=== PATIENT | female | born 1965 | race Caucasian/White ===

== ENCOUNTER → 2016-07-28 | Outpatient (CLI) | payer BC | END | disposition home or self-care (01) | LOC: C.PAPS 14:36 | PROVIDERS: ATTEND Obstetrics & Gynecology | DX: Z01.419 Encounter for gynecological examination (general) (routine) without abnormal findings (principal); Z87.898 Personal history of other specified conditions ==

== ENCOUNTER 2024-01-20 14:38 | Inpatient (IN) ==
[2024-01-20 15:30] LABS: Hematocrit (blood only) 42.8 % (37.0-47.0); Mean Corpuscular Hemoglobin 27.3 pg (25.0-34.0); Mean Corpuscular Hgb Conc 32.7 g/dL (32.0-36.0); Mean Corpuscular Volume 83.4 fL (80.0-100.0); Mean Platelet Volume 9.9 fL (9.4-12.4); Platelet Count 316 K/uL (130-400); RDW Coefficient of Variation 13.1 % (11.5-14.5); RDW Standard Deviation 40.1 fL (36.4-46.3); Red Blood Count 5.13 M/uL (4.20-5.40)
[2024-01-20 15:45] LABS: BUN Creatinine Ratio 18.5 (10-20); Calcium 9.2 mg/dl (8.6-10.3); Creatinine Clr Calc Pharmacy 63.8 ml/min; Est GFR (African American) 91.5 ml/min; Est GFR (Non-African American) 78.9 ml/min
[2024-01-20 15:51] LABS: Basophils # (auto) 0.02 K/uL (0.00-0.20); Basophils % (auto) 0.2 %; Immature Granulocytes # (auto) 0.04 K/uL (0.01-0.20); Immature Granulocytes % (auto) 0.4 %; Lymphocytes # (auto) 0.56 K/uL (1.20-3.40); Lymphocytes % (auto) 5.4 %; Monocytes # (auto) 0.37 K/uL (0.11-0.59); Monocytes % (auto) 3.6 %; Neutrophils # (auto) 9.41 K/uL (1.40-6.50); Neutrophils % (auto) 90.4 %
[2024-01-20 15:54] LABS: INR 0.9 (0.9-1.1); Partial Thromboplastin Time 27 Seconds (21-31); Prothrombin Time 10.3 Seconds (9.0-12.0)
--- NOTE | 2024-01-20 16:09 | XRay Report ---
XR chest 1V portable HISTORY: 59 years-old Female Chest pain, nonspecific COMPARISON: 11/09/2018 TECHNIQUE: AP view of the chest FINDINGS: The cardiomediastinal silhouette is unremarkable. The lungs and pleural spaces are clear. No pneumoth orax is seen. The bony thorax is grossly intact. A surgical clip projects over the left breast latera lly. There is mild S-shaped thoracic scoliosis. IMPRESSION: No active disease in the chest. ACT 112: Negative or not required by law. The above report was generated using voice recognition software. It may contain grammatical, syntax o r spelling errors. Electronically signed by: Davon Carreon M.D. 01/20/2024 4:07 PM
--- NOTE | 2024-01-20 16:10 | XRay Report ---
XR pelvis 1-2V routine, XR femur RT 2V routine HISTORY: 59 years-old Female fall acute pain of the pelvis and right hip status post fall COMPARISON: None TECHNIQUE: AP view of the pelvis with 2 views of the right hip FINDINGS: PELVIS: Mild osteoarthritis of the hips. Pelvic ring is intact. Acute right proximal femoral fracture . FEMUR: There is an acute nondisplaced transcervical fracture of the right femoral neck with mild impa ction. No dislocation or additional acute fracture. IMPRESSION: Acute mildly impacted nondisplaced transcervical fracture of the proximal right femur. ACT 112: Negative or not required by law. The above report was generated using voice recognition software. It may contain grammatical, syntax o r spelling errors. Electronically signed by: Davon Carreon M.D. 01/20/2024 4:09 PM
[2024-01-20] MEDS: OPTIRAY 320 125ml IV ONE (16:16)
--- NOTE | 2024-01-20 16:39 | CT Scan Report ---
CT head/brain wo con CLINICAL HISTORY: 59 years-old Female with fall. Acute head injury status post fall TECHNIQUE: Multiple axial CT images of the head were obtained without contrast. A dose lowering tech nique was utilized adhering to the principles of ALARA. COMPARISON: CT cervical spine of same day FINDINGS: No acute intracranial hemorrhage, midline shift, intracranial mass, hydrocephalus, territorial ischem ia or abnormal extra-axial collection. The calvarium is intact. The paranasal sinuses, mastoid air cells, and middle ear cavities are clear . IMPRESSION: No acute intracranial abnormality or fracture. ACT 112: Negative or not required by law. The above report was generated using voice recognition software. It may contain grammatical, syntax o r spelling errors. Electronically signed by: Davon Carreon M.D. 01/20/2024 4:38 PM
--- NOTE | 2024-01-20 16:43 | CT Scan Report ---
CT cervical spine wo con CLINICAL HISTORY: 59 years-old Female with fall. Acute neck injury status post fall COMPARISON: Head CT of same day TECHNIQUE: Multiple axial CT images of the cervical spine were obtained without contrast. A dose low ering technique was utilized adhering to the principles of ALARA. FINDINGS: Mild to moderate intervertebral disc space narrowing with small posterior disc osteophyte c omplex at C5-C6. Mild multilevel uncovertebral hypertrophy and facet arthrosis. Minimal chronic appea ring T1 and T2 wedge deformities. No acute cervical spine fracture or subluxation is identified. Mult inodular thyroid with hypodense nodules measuring up to 1.7 cm on the left. The cervical soft tissues appear unremarkable. The visualized lung apices appear clear. IMPRESSION: 1. No acute cervical spine fracture or subluxation. 2. Multinodular thyroid. ACT 112: Negative or not required by law. The above report was generated using voice recognition software. It may contain grammatical, syntax o r spelling errors. Electronically signed by: Davon Carreon M.D. 01/20/2024 4:41 PM
--- NOTE | 2024-01-20 16:52 | CT Scan Report ---
CT angio chest PE protocol, CT abd pelvis IV con only CT DOSE: 2575. mGy.cm HISTORY: 59 years-old Female with ro pe. Acute chest and abdominal pain status post fall TECHNIQUE: Multiple CTA images of the chest were obtained after the intravenous administration of [address] abdomen and pelvis with IV contrast also obtained. Coronal and sagittal MIPS were ob tained from the axial data set and were submitted for review. All measurements were obtained accordi ng to NASCET criteria. A dose lowering technique was utilized adhering to the principles of ALARA. COMPARISON: Mammogram 01/08/2024. FINDINGS: CTA: Mild cardiomegaly. No thoracic aortic aneurysm or dissection. No pleural effusion. No pulmonary embol i identified. CT CHEST: Multinodular thyroid with nodules on the left measuring up to 1.7 cm. No lymphadenopathy. No pneumoth orax, pleural effusion or pulmonary edema. Minimal dependent subsegmental bibasilar atelectasis. Mini mal biapical pleural parenchymal scarring. Central airways are patent. Indeterminate 1.2 cm soft tiss ue attenuating ovoid circumscribed mass of the lateral mid right breast on image 56, also noted on pr ior mammogram. There is no paravertebral edema. Subtle acute nondisplaced fracture of the distal clav icle on image 210 series 8. Lumbar levoscoliosis. CT ABDOMEN AND PELVIS WITH IV CONTRAST: No free air. Unremarkable spleen, pancreas and adrenal glands. The gallbladder and liver are within n ormal limits. Subcentimeter hypodense focus of the right hepatic lobe on image 85 series 10 and sugge stive of a probable cyst. Patency of the hepatic and portal veins. Unremarkable kidneys without hydro nephrosis. Bladder wall thickening with partial distention. Dictated collecting systems and ureters o n the left. Atherosclerosis of the abdominal aorta without aneurysm. No lymphadenopathy. No bowel obstruction or bowel wall thickening. Trace nonspecific free pelvic fluid. Normal appendix. Mildly impacted nondisplaced transcervical right proximal femoral fracture. No additional acute fract ure identified. Lumbar levoscoliosis. IMPRESSION: 1. Subtle acute nondisplaced fracture of the distal right clavicle. 2. No acute displaced rib fracture or pneumothorax. 3. No pulmonary emboli. 4. Acute mildly impacted nondisplaced transcervical fracture of the proximal right femur. 5. No evidence of acute solid organ injury. ACT 112: Negative or not required by law. The above report was generated using voice recognition software. It may contain grammatical, syntax o r spelling errors. Electronically signed by: Davon Carreon M.D. 01/20/2024 4:49 PM
[2024-01-20] MEDS ORDERED: MoRPHine SULFATE 4 MG/ML 1 ML CARP\\VIAL IV PRN (17:03)
[2024-01-20] MEDS ORDERED: MoRPHine SULFATE 2 MG/ML CARP IV PRN ×2 (17:03→21:43)
--- NOTE | 2024-01-20 17:20 | History & Physical Report ---
Date of Service January 20, 2024 Assessment & Plan (1) Femoral neck fracture: Plan: NPO after midnight, IV fluids, bedrest Pain relief - acetaminophen 1g PO TID, morphine 2-4mg IV PRN Medically optimized for surgery at this time. Revised cardiac risk index 0. Consult orthopedics Vitamin D level in AM, recommend DEXA scan on follow up with PCP (2) Syncope and collapse: Plan: Not particularly concerning history as appears to be vasovagal and recurrent after her COVID vaccines (the only other time she has had a sycopal event) Would recommend she hold her lisinopril prior to vaccination in the future Monitor on telemetry for arryhtmia (3) Clavicle fracture: Plan: Sling (4) Hypertension: Plan: Hold lisinopril Plan VTE Prophyalxis - deferred post operatively Diet - regular, NPO after midnight Disposition - admit to med/tele Admission and Anticipated Discharge Date Admission Date: January 20, 2024 History of Present Illness Chief Complaint: Right hip pain Syncope Primary Care Provider: Anthony Trejo MD Dee Dee Epps is a 59 year old female presents to the ER with syncope. She received a COVID-vaccine yesterday and while urinating and thinks she had a complete syncopal event around 6am (lightheaded and room spinning prior) hitting the right side of her head. Having right shoulder pain and hip pain following with fall. She crawled to the bedroom but was in so much pain her brought her in by wheelchair. She did take a Xanax after the fall to help with anxiety but not before the fall. She takes Xanax once every 2 weeks or so. Right hip pain severity 10/10 on walking opr movement, current severity 1-2/10. She did not take her lisinopril today. No prior cardiovascular history. No shortness of breath or chest pain on climbing up a flight of stairs or 1 mile walk. She reports one other episode of syncope with her other COVID vaccine. Allergies Allergy/AdvReac Type Severity Reaction Status Date / Time sulfamethoxazole Allergy Severe Rash Verified 01/20/24 21:49 [From Bactrim] trimethoprim [From Bactrim] Allergy Severe Rash Verified 01/20/24 21:49 escitalopram [From Lexapro] AdvReac ELAVATES BP Verified 01/20/24 17:18 Home Medications Medication Instructions Recorded Confirmed Type lisinopril 20 mg tablet 20 mg PO QAM 11/09/18 01/20/24 History alprazolam 0.5 mg tablet 0.5 mg PO Q12H PRN Anxiety 01/20/24 01/20/24 History calcium carb-ergocalciferol (vit 1 tab PO DAILY 01/20/24 01/20/24 History D2) 500 mg-125 unit tablet Past Med/Surg History Problem List (Updated 01/20/24 @ 18:10 by Brayan Jean-Baptiste MD) Syncope and collapse (Acute) Clavicle fracture (Acute) Femoral neck fracture (Acute) Postmenopausal bleeding Rotator cuff tear Calcific tendinitis Leukoplakia of vulva History of cervical dysplasia (2019) 2019 RUP[facility]O [place] I 2019 - colpo 2019 cotest neg/neg 2021 cotest neg/neg --> per [facility] repeat 3 years Menopausal symptoms Post-menopausal bleeding Hypertension Acne (Acute) Medical History Mild dysplasia of cervix ([place]PO[place] I) (2019) Atypical glandular cells of undetermined significance of cervix (2019) Abnormal mammogram Hypertension Surgical History H/O oral surgery S/P fine needle aspiration H/O colposcopy with cervical biopsy with endocervical curettage Family History Grandfather (Paternal) Colorectal cancer Denies family history of Ovarian cancer Breast cancer Social History Smoking Status: Never smoker Do You Dip or Chew Tobacco: No; Hx Alcohol Use: Yes Alcohol type: wine Hx Substance Use: No Preferred Language: [place] marital status: Current Living Situation: Spouse current occupational status: employed current occupation: [employer] Feels Safe at Home: Yes Diet: regular during the past year weight has: remained stable Physical Activity Frequency: 1-2 Times per Week Physical Activity Frequency Comment: wants to walk more Review of Systems Review of Systems: All systems reviewed & are unremarkable except as noted in HPI & below Physical Exam Constitutional: WD/WN, vitals as above Eyes: PERRL, conjunctivae normal, anicteric sclerae Respiratory: normal respiratory effort, lungs clear to auscultation Cardiovascular: RRR, no murmur, no edema Gastrointestinal (Abdomen): normal bowel sounds, soft, nontender, no hepatosplenomegaly Musculoskeletal: right leg with groin pain on any movement. dorsiflexion and plantarflexion 5/5, DP/PT intact Mild pain over lateral aspect of right clavicle Skin: no rashes, warm and dry Neurologic: moves all extremities and awake; not confused Psychiatric: A+Ox3, euthymic affect Results & Data Results & Data Vital Signs (Past 12 Hours) Vital Signs Temp Pulse Resp BP Pulse Ox 01/20/24 15:18 96 H 01/20/24 14:46 37.0 C 100 H 20 132/83 100 Laboratory Results Abnormal lab results 01/20/24 Range/Units 15:02 Neut # (Auto) 9.41 H (1.40-6.50) K/uL Lymph # (Auto) 0.56 L (1.20-3.40) K/uL Sodium 132 L (136-145) mmol/L Glucose 164 H (70-99(Fasting)) mg/dl Diagnostic Findings CT head/brain wo con CLINICAL HISTORY: 59 years-old Female with fall. Acute head injury status post fall TECHNIQUE: Multiple axial CT images of the head were obtained without contrast. A dose lowering technique was utilized adhering to the principles of ALARA. COMPARISON: CT cervical spine of same day FINDINGS: No acute intracranial hemorrhage, midline shift, intracranial mass, hydrocephalus, territorial ischemia or abnormal extra-axial collection. The calvarium is intact. The paranasal sinuses, mastoid air cells, and middle ear cavities are clear. IMPRESSION: No acute intracranial abnormality or fracture. XR chest 1V portable HISTORY: 59 years-old Female Chest pain, nonspecific COMPARISON: 11/09/2018 TECHNIQUE: AP view of the chest FINDINGS: The cardiomediastinal silhouette is unremarkable. The lungs and pleural spaces are clear. No pneumothorax is seen. The bony thorax is grossly intact. A surgical clip projects over the left breast laterally. There is mild S-shaped thoracic scoliosis. IMPRESSION: No active disease in the chest. CT angio chest PE protocol, CT abd pelvis IV con only CT DOSE: 2575. mGy.cm HISTORY: 59 years-old Female with ro pe. Acute chest and abdominal pain status post fall TECHNIQUE: Multiple CTA images of the chest were obtained after the intravenous administration of [address] abdomen and pelvis with IV contrast also obtained. Coronal and sagittal MIPS were obtained from the axial data set and were submitted for review. All measurements were obtained according to NASCET criteria. A dose lowering technique was utilized adhering to the principles of ALARA. COMPARISON: Mammogram 01/08/2024. FINDINGS: CTA: Mild cardiomegaly. No thoracic aortic aneurysm or dissection. No pleural effusion. No pulmonary emboli identified. CT CHEST: Multinodular thyroid with nodules on the left measuring up to 1.7 cm. No lymphadenopathy. No pneumothorax, pleural effusion or pulmonary edema. Minimal dependent subsegmental bibasilar atelectasis. Minimal biapical pleural parenchymal scarring. Central airways are patent. Indeterminate 1.2 cm soft tissue attenuating ovoid circumscribed mass of the lateral mid right breast on image 56, also noted on prior mammogram. There is no paravertebral edema. Subtle acute nondisplaced fracture of the distal clavicle on image 210 series 8. Lumbar levoscoliosis. CT ABDOMEN AND PELVIS WITH IV CONTRAST: No free air. Unremarkable spleen, pancreas and adrenal glands. The gallbladder and liver are within normal limits. Subcentimeter hypodense focus of the right hepatic lobe on image 85 series 10 and suggestive of a probable cyst. Patency of the hepatic and portal veins. Unremarkable kidneys without hydronephrosis. Bladder wall thickening with partial distention. Dictated collecting systems and ureters on the left. Atherosclerosis of the abdominal aorta without aneurysm. No lymphadenopathy. No bowel obstruction or bowel wall thickening. Trace nonspecific free pelvic fluid. Normal appendix. Mildly impacted nondisplaced transcervical right proximal femoral fracture. No additional acute fracture identified. Lumbar levoscoliosis. IMPRESSION: 1. Subtle acute nondisplaced fracture of the distal right clavicle. 2. No acute displaced rib fracture or pneumothorax. 3. No pulmonary emboli. 4. Acute mildly impacted nondisplaced transcervical fracture of the proximal right femur. 5. No evidence of acute solid organ injury. XR pelvis 1-2V routine, XR femur RT 2V routine HISTORY: 59 years-old Female fall acute pain of the pelvis and right hip status post fall COMPARISON: None TECHNIQUE: AP view of the pelvis with 2 views of the right hip FINDINGS: PELVIS: Mild osteoarthritis of the hips. Pelvic ring is intact. Acute right proximal femoral fracture. FEMUR: There is an acute nondisplaced transcervical fracture of the right femoral neck with mild impaction. No dislocation or additional acute fracture. IMPRESSION: Acute mildly impacted nondisplaced transcervical fracture of the proximal right femur. Medications Administered ER medications given: None ECG Rate (beats per minute): 86 Rhythm: normal sinus Findings: no acute ischemic change Comparison ECG Date: from (November 09, 2018) Change: no significant change Code Status & VTE Plan Code Status Full VTE Prophylaxis Plan VTE Prophylaxis will be ordered: Yes PG Care Time/CCT Total # of Minutes Spent Total Time Spent with Patient: Total time spent is greater than 50% in coordination of care (as documented) at patient's floor/unit and/or counseling patient: Coding Level of Care Code 56681 INT INP/OBS CARE 2/55MIN Diagnoses Femoral neck fracture S72.009A Encounter type: initial encounter Fracture type: closed Laterality: unspecified laterality Syncope and collapse R55 Clavicle fracture S42.001A Clavicle location: unspecified part of clavicle Encounter type: initial encounter Fracture alignment: nondisplaced Fracture type: closed Laterality: right Hypertension I10 (1) Femoral neck fracture Encounter type: initial encounter Fracture type: closed Laterality: unspecified laterality Qualified Code(s): S72.009A - Fracture of unspecified part of neck of unspecified femur, initial encounter for closed fracture (3) Clavicle fracture Clavicle location: unspecified part of clavicle Encounter type: initial encounter Fracture alignment: nondisplaced Fracture type: closed Laterality: right Qualified Code(s): S42.001A - Fracture of unspecified part of right clavicle, initial encounter for closed fracture
--- NOTE | 2024-01-20 18:00 | Emergency Department Note ---
History of Present Illness General Chief complaint: Syncope Stated complaint: PASSED OUT, R SHOULDER, HIT HEAD, R HIP/LEG Time Seen by Provider: 01/20/24 14:53 History of Present Illness Provider complaint: Syncope right hip pain Onset (ago): day(s) 1 Location: lower extremity and right Maximum Pain Intensity: 10 Current Pain Intensity: 9 Quality: + stabbing, + aching and + sharp Relieved By: + none Exacerbated By: + none Associated symptoms: no chest pain, no cough or no nausea/vomiting 59-year-old female presents to emergency department for syncopal episode and right hip pain. Patient states she received a COVID-vaccine yesterday and been feeling weak since then. She states she went to use the bathroom today and after urinating she got up and had a syncopal episode waking up on the ground. Patient states she is not remember what happened. She does report hitting her head. Patient is currently porting pain in her right hip. No blood thinners. Home Medications Medication Instructions Recorded Confirmed Type lisinopril 20 mg tablet 20 mg PO QAM 11/09/18 01/20/24 History calcium carb-ergocalciferol (vit 1 tab PO DAILY 01/20/24 01/20/24 History D2) 500 mg-125 unit tablet Allergies Allergy/AdvReac Type Severity Reaction Status Date / Time escitalopram [From Lexapro] AdvReac ELAVATES BP Verified 01/20/24 17:18 bactrim Allergy Severe rash Uncoded 01/20/24 17:18 Past Med/Surg History Problem List (Updated 01/20/24 @ 18:10 by Brayan Jean-Baptiste MD) Syncope and collapse (Acute) Clavicle fracture (Acute) Femoral neck fracture (Acute) Postmenopausal bleeding Rotator cuff tear Calcific tendinitis Leukoplakia of vulva History of cervical dysplasia (2019) 2019 RUPERTO [place] I 2019 - colpo 2020 cotest neg/neg 2021 cotest neg/neg --> per [facility] repeat 3 years Menopausal symptoms Post-menopausal bleeding Hypertension Acne (Acute) Medical History Mild dysplasia of cervix ([place]POLE[place] I) (2019) Atypical glandular cells of undetermined significance of cervix (2019) Abnormal mammogram Hypertension Surgical History H/O oral surgery S/P fine needle aspiration H/O colposcopy with cervical biopsy with endocervical curettage Family History Grandfather (Paternal) Colorectal cancer Denies family history of Ovarian cancer Breast cancer Social History Smoking Status: Never smoker Do You Dip or Chew Tobacco: No; Hx Alcohol Use: Yes Hx Substance Use: No Preferred Language: Greenlandic marital status: Current Living Situation: Spouse current occupational status: employed current occupation: [employer] Feels Safe at Home: Yes Diet: regular during the past year weight has: remained stable Physical Activity Frequency: 1-2 Times per Week Physical Activity Frequency Comment: wants to walk more Physical Exam Vital Signs Vital Signs - 24 hr 01/20/24 14:46 01/20/24 15:18 Temperature 37.0 C Temperature Source Skin Pulse Rate 100 H 96 H Respiratory Rate 20 Respiratory Effort / Characteristics Non-Labored Spontaneous Respiratory Depth Normal Blood Pressure 132/83 Blood Pressure Mean 99 Pulse Oximetry 100 Sepsis Recent Fever Within 48 Hours No Sepsis New/Unexplained Change in Mental Status N/A Sepsis Action Taken by Nursing No Action Required Physical Exam GENERAL: She is oriented to person, place, and time. She appears well-developed and well-nourished. She does not appear distressed. HENT: Exam performed. -Head: Normocephalic and atraumatic. -Right Ear: External ear normal. No mastoid erythema -Left Ear: External ear normal. No mastoid erythema -Mouth/Throat: The oropharynx is clear and moist. No trismus in the jaw. No dental abscesses or uvula swelling. No oropharyngeal exudate or tonsillar abscesses. EYES: Conjunctivae and EOM are normal. Pupils are equal, round, and reactive to light. Right eye exhibits no discharge. Left eye exhibits no discharge. No scleral icterus. NECK: Normal range of motion. Neck supple. No JVD present. No spinous process tenderness present. CV: Normal rate, regular rhythm, normal heart sounds and intact distal pulses. There is no peripheral edema. Palpable radial pulses bue. PULM/CHEST: Effort normal and breath sounds normal. No respiratory distress. No stridor. She has no wheezes. She has no rales. -Chest Wall: She exhibits no tenderness. No crepitus bilaterally. ABD: The abdomen is soft. She has no distension. No mass is present. There is no tenderness. There is no rebound, no guarding. MUSC/SKEL: Normal range of motion. There is no peripheral edema, tenderness or deformity. LYMPH: No cervical adenopathy. NEURO: She is alert and oriented to person, place, and time. She has normal strength. No cranial nerve deficit or sensory deficit. Coordination and gait normal. GCS eye subscore is 4. GCS verbal subscore is 5. GCS motor subscore is 6. Cerebellar tests wnl. SKIN: Skin is warm and dry. She is not diaphoretic. PSYCH: She has a normal mood and affect. Behavior is normal. Judgment and thought content normal. Course Course 1453: The patient was evaluated in room B3. A complete history and physical exam was performed Cardiac monitoring: An order was placed for continuous cardiac monitoring. The monitor shows a rate of 90 with sinus rhythm interpreted by sd 1710: Vital signs stable. Labs are unremarkable. Imaging shows a right sided femoral neck fracture as well as a subtle right-sided clavicular fracture. Patient placed in sling for clavicular fracture. Discussed case with Dr. Pena via [place] text and made him aware that the plan was to admit the patient to medicine with him on consult and he is in agreement. Dr. Schilling [facility] hospitalist was notified. Administered Medications Discontinued Medications Ioversol (Optiray 320 125ml) 119 ml IV ONCE ONE Stop: 01/20/24 16:16 Last Admin: 01/20/24 16:16 Dose: 119 ml Documented By: HAYDEN Medical Decision Making Laboratory Data Attestation: I reviewed the patient's lab results. 01/20/24 15:02 01/20/24 15:02 Lab Results 01/20/24 Range/Units 15:02 WBC 10.40 (4.8-10.8) K/ul RBC 5.13 (4.20-5.40) M/uL Hgb 14.0 (12.0-16.0) g/dl Hct 42.8 (37.0-47.0) % MCV 83.4 (80.0-100.0) fL MCH 27.3 (25.0-34.0) pg MCHC 32.7 (32.0-36.0) g/dL RDW Std Deviation 40.1 (36.4-46.3) fL RDW Coeff of Mercedes 13.1 (11.5-14.5) % Plt Count 316 (130-400) K/uL MPV 9.9 (9.4-12.4) fL Immature Gran % (Auto) 0.4 % Neut % (Auto) 90.4 % Lymph % (Auto) 5.4 % [place] % (Auto) 3.6 % Eos % (Auto) 0.0 % Baso % (Auto) 0.2 % Neut # (Auto) 9.41 H (1.40-6.50) K/uL Lymph # (Auto) 0.56 L (1.20-3.40) K/uL [place] # (Auto) 0.37 (0.11-0.59) K/uL Eos # (Auto) 0.00 (0.00-0.50) K/uL Baso # (Auto) 0.02 (0.00-0.20) K/uL Immature Gran # (Auto) 0.04 (0.01-0.20) K/uL PT 10.3 (9.0-12.0) Seconds INR 0.9 (0.9-1.1) APTT 27 (21-31) Seconds PTT Ratio 1.0 Sodium 132 L (136-145) mmol/L Potassium 4.0 (3.5-5.1) mmol/L Chloride 100 (98-107) mmol/L Carbon Dioxide 23 (21-32) mmol/L Anion Gap 9 (3-11) BUN 15 (6-23) mg/dl Creatinine 0.81 (0.6-1.2) mg/dl Est Cr Clr Drug Dosing 63.8 ml/min Est GFR ( Amer) 91.5 ml/min Est GFR (Non-Af Amer) 78.9 ml/min BUN/Creatinine Ratio 18.5 (10-20) Glucose 164 H (70-99(Fasting)) mg/dl Calcium 9.2 (8.6-10.3) mg/dl Troponin I High Sens 3.0 (0-14) pg/ml Lipase 16 (11-82) U/L Imaging Data Attestation: I personally reviewed and interpreted this imaging study as follows: My Impression: Chest x-ray negative. Airway clear. No pneumothorax. No consolidation. No cardiomegaly or cephalization.. No free air under the diaphragm. No fractures of the skeletal structures. Radiologist's Impression: Abdomen/Pelvis CT 01/20/24 15:06 CT angio chest PE protocol, CT abd pelvis IV con only CT DOSE: 2575. mGy.cm HISTORY: 59 years-old Female with ro pe. Acute chest and abdominal pain status post fall TECHNIQUE: Multiple CTA images of the chest were obtained after the intravenous administration of [address] abdomen and pelvis with IV contrast also obtained. Coronal and sagittal MIPS were obtained from the axial data set and were submitted for review. All measurements were obtained according to NASCET criteria. A dose lowering technique was utilized adhering to the principles of ALARA. COMPARISON: Mammogram 01/08/2024. FINDINGS: CTA: Mild cardiomegaly. No thoracic aortic aneurysm or dissection. No pleural effusion. No pulmonary emboli identified. CT CHEST: Multinodular thyroid with nodules on the left measuring up to 1.7 cm. No lymphadenopathy. No pneumothorax, pleural effusion or pulmonary edema. Minimal dependent subsegmental bibasilar atelectasis. Minimal biapical pleural parenchymal scarring. Central airways are patent. Indeterminate 1.2 cm soft tissue attenuating ovoid circumscribed mass of the lateral mid right breast on image 56, also noted on prior mammogram. There is no paravertebral edema. Subtle acute nondisplaced fracture of the distal clavicle on image 210 series 8. Lumbar [address]os[address]iosis. CT ABDOMEN AND PELVIS WITH IV CONTRAST: No free air. Unremarkable spleen, pancreas and adrenal glands. The gallbladder and liver are within normal limits. Subcentimeter hypodense focus of the right hepatic lobe on image 85 series 10 and suggestive of a probable cyst. Patency of the hepatic and portal veins. Unremarkable kidneys without hydronephrosis. Bladder wall thickening with partial distention. Dictated collecting systems and ureters on the left. Atherosclerosis of the abdominal aorta without aneurysm. No lymphadenopathy. No bowel obstruction or bowel wall thickening. Trace nonspecific free pelvic fluid. Normal appendix. Mildly impacted nondisplaced transcervical right proximal femoral fracture. No additional acute fracture identified. Lumbar levoscoliosis. IMPRESSION: 1. Subtle acute nondisplaced fracture of the distal right clavicle. 2. No acute displaced rib fracture or pneumothorax. 3. No pulmonary emboli. 4. Acute mildly impacted nondisplaced transcervical fracture of the proximal right femur. 5. No evidence of acute solid organ injury. ACT 112: Negative or not required by law. The above report was generated using voice recognition software. It may contain grammatical, syntax or spelling errors. Electronically signed by: Davon Carreon M.D. 01/20/2024 4:[address] 01/20/24 15:06 CT cervical spine wo con CLINICAL HISTORY: 59 years-old Female with fall. Acute neck injury status post fall COMPARISON: Head CT of same day TECHNIQUE: Multiple axial CT images of the cervical spine were obtained without contrast. A dose lowering technique was utilized adhering to the principles of ALARA. FINDINGS: Mild to moderate intervertebral disc space narrowing with small posterior disc osteophyte complex at C5-C6. Mild multilevel uncovertebral hypertrophy and facet arthrosis. Minimal chronic appearing T1 and T2 wedge deformities. No acute cervical spine fracture or subluxation is identified. Multinodular thyroid with hypodense nodules measuring up to 1.7 cm on the left. The cervical soft tissues appear unremarkable. The visualized lung apices appear clear. IMPRESSION: 1. No acute cervical spine fracture or subluxation. 2. Multinodular thyroid. ACT 112: Negative or not required by law. The above report was generated using voice recognition software. It may contain grammatical, syntax or spelling errors. Electronically signed by: Davon Carreon M.D. 01/20/2024 4:41 PM Chest X-Ray 01/20/24 15:06 XR chest 1V portable HISTORY: 59 years-old Female Chest pain, nonspecific COMPARISON: 11/09/2018 TECHNIQUE: AP view of the chest FINDINGS: The cardiomediastinal silhouette is unremarkable. The lungs and pleural spaces are clear. No pneumothorax is seen. The bony thorax is grossly intact. A surgical clip projects over the left breast laterally. There is mild S-shaped thoracic scoliosis. IMPRESSION: No active disease in the chest. ACT 112: Negative or not required by law. The above report was generated using voice recognition software. It may contain grammatical, syntax or spelling errors. Electronically signed by: Davon Carreon M.D. 01/20/2024 4:07 PM Femur X-Ray 01/20/24 15:06 XR pelvis 1-2V routine, XR femur RT 2V routine HISTORY: 59 years-old Female fall acute pain of the pelvis and right hip status post fall COMPARISON: None TECHNIQUE: AP view of the pelvis with 2 views of the right hip FINDINGS: PELVIS: Mild osteoarthritis of the hips. Pelvic ring is intact. Acute right proximal femoral fracture. FEMUR: There is an acute nondisplaced transcervical fracture of the right femoral neck with mild impaction. No dislocation or additional acute fracture. IMPRESSION: Acute mildly impacted nondisplaced transcervical fracture of the proximal right femur. ACT 112: Negative or not required by law. The above report was generated using voice recognition software. It may contain grammatical, syntax or spelling errors. Electronically signed by: Davon Carreon M.D. 01/20/2024 4:[address] 01/20/24 15:06 CT head/brain wo con CLINICAL HISTORY: 59 years-old Female with fall. Acute head injury status post fall TECHNIQUE: Multiple axial CT images of the head were obtained without contrast. A dose lowering technique was utilized adhering to the principles of ALARA. COMPARISON: CT cervical spine of same day FINDINGS: No acute intracranial hemorrhage, midline shift, intracranial mass, hydrocephalus, territorial ischemia or abnormal extra-axial collection. The calvarium is intact. The paranasal sinuses, mastoid air cells, and middle ear cavities are clear. IMPRESSION: No acute intracranial abnormality or fracture. ACT 112: Negative or not required by law. The above report was generated using voice recognition software. It may contain grammatical, syntax or spelling errors. Electronically signed by: Davon Carreon M.D. 01/20/2024 4:38 PM Pelvis X-Ray 01/20/24 15:06 XR pelvis 1-2V routine, XR femur RT 2V routine HISTORY: 59 years-old Female fall acute pain of the pelvis and right hip status post fall COMPARISON: None TECHNIQUE: AP view of the pelvis with 2 views of the right hip FINDINGS: PELVIS: Mild osteoarthritis of the hips. Pelvic ring is intact. Acute right proximal femoral fracture. FEMUR: There is an acute nondisplaced transcervical fracture of the right femoral neck with mild impaction. No dislocation or additional acute fracture. IMPRESSION: Acute mildly impacted nondisplaced transcervical fracture of the proximal right femur. ACT 112: Negative or not required by law. The above report was generated using voice recognition software. It may contain grammatical, syntax or spelling errors. Electronically signed by: Davon Carreon M.D. 01/20/2024 4:09 PM Chest CTA 01/20/24 15:52 CT angio chest PE protocol, CT abd pelvis IV con only CT DOSE: 2575. mGy.cm HISTORY: 59 years-old Female with ro pe. Acute chest and abdominal pain status post fall TECHNIQUE: Multiple CTA images of the chest were obtained after the intravenous administration of [address] abdomen and pelvis with IV contrast also obtained. Coronal and sagittal MIPS were obtained from the axial data set and were submitted for review. All measurements were obtained according to NASCET criteria. A dose lowering technique was utilized adhering to the principles of ALARA. COMPARISON: Mammogram 01/08/2024. FINDINGS: CTA: Mild cardiomegaly. No thoracic aortic aneurysm or dissection. No pleural effusion. No pulmonary emboli identified. CT CHEST: Multinodular thyroid with nodules on the left measuring up to 1.7 cm. No lymphadenopathy. No pneumothorax, pleural effusion or pulmonary edema. Minimal dependent subsegmental bibasilar atelectasis. Minimal biapical pleural parenchymal scarring. Central airways are patent. Indeterminate 1.2 cm soft tissue attenuating ovoid circumscribed mass of the lateral mid right breast on image 56, also noted on prior mammogram. There is no paravertebral edema. Subtle acute nondisplaced fracture of the distal clavicle on image 210 series 8. Lumbar levoscoliosis. CT ABDOMEN AND PELVIS WITH IV CONTRAST: No free air. Unremarkable spleen, pancreas and adrenal glands. The gallbladder and liver are within normal limits. Subcentimeter hypodense focus of the right hepatic lobe on image 85 series 10 and suggestive of a probable cyst. Patency of the hepatic and portal veins. Unremarkable kidneys without hydronephrosis. Bladder wall thickening with partial distention. Dictated collecting systems and ureters on the left. Atherosclerosis of the abdominal aorta without aneurysm. No lymphadenopathy. No bowel obstruction or bowel wall thickening. Trace nonspecific free pelvic fluid. Normal appendix. Mildly impacted nondisplaced transcervical right proximal femoral fracture. No additional acute fracture identified. Lumbar levoscoliosis. IMPRESSION: 1. Subtle acute nondisplaced fracture of the distal right clavicle. 2. No acute displaced rib fracture or pneumothorax. 3. No pulmonary emboli. 4. Acute mildly impacted nondisplaced transcervical fracture of the proximal right femur. 5. No evidence of acute solid organ injury. ACT 112: Negative or not required by law. The above report was generated using voice recognition software. It may contain grammatical, syntax or spelling errors. Electronically signed by: Davon Carreon M.D. 01/20/2024 4:49 PM ECG Data Attestation: I personally reviewed and interpreted this ECG as follows: Rate (beats per minute): 86 Rhythm: + normal sinus ECG Intervals/blocks: + Normal UT and + Normal QT-c ECG ST segments: + Normal ST segments Additional Comments: QRS 72 MDM Narrative 1453: The patient was evaluated in room B3. A complete history and physical exam was performed Cardiac monitoring: An order was placed for continuous cardiac monitoring. The monitor shows a rate of 90 with sinus rhythm interpreted by me 1710: Vital signs stable. Labs are unremarkable. Imaging shows a right sided femoral neck fracture as well as a subtle right-sided clavicular fracture. Patient placed in sling for clavicular fracture. Discussed case with Dr. Pena via [place] text and made him aware that the plan was to admit the patient to medicine with him on consult and he is in agreement. Dr. Schilling [facility] hospitalist was notified. Impression & Plan Femoral neck fracture, Clavicle fracture, Syncope and collapse Discharge Plan Visit Data Chief Complaint: Syncope Stated Complaint: PASSED OUT, R SHOULDER, HIT HEAD, R HIP/LEG ED Provider: Brayan Jean-Baptiste Discharge Problem: Femoral neck fracture, Clavicle fracture, Syncope and collapse Patient Disposition: Being Evaluated by Hospitalist Forms Stand Alone Forms: My [facility] [place] Prescriptions Prescriptions: No Action lisinopril 20 mg tablet 20 mg PO QAM Calcium 500 with Vitamin D2 500-125 mg-unit Tablet 1 tab PO DAILY Referrals Referrals: Anthony Trejo MD [Primary Care Provider] - Discharge Problem: Femoral neck fracture Qualifiers: Encounter type: initial encounter Fracture type: closed Laterality: unspecified laterality Qualified Code(s): S72.009A - Fracture of unspecified part of neck of unspecified femur, initial encounter for closed fracture Clavicle fracture Qualifiers: Encounter type: initial encounter Clavicle location: unspecified part of clavicle Fracture type: closed Fracture alignment: nondisplaced Laterality: r ight Qualified Code(s): S42.001A - Fracture of unspecified part of right clavicle, initial encounter for closed fracture
[2024-01-20 18:26] LABS: Appearance Urine Clear (Clear); Bilirubin Urine Negative (Negative); Blood Urine Negative (Negative); Color Urine Yellow; Glucose Urine UA Negative (Negative); Ketones Urine Negative (Negative); Leukocyte Esterase Urine Negative (Negative); Nitrite Urine Negative (Negative); Protein Urine Negative (Negative); Specific Gravity Urine > 1.045 (1.000-1.030); Urobilinogen Urine Negative (Negative)
[2024-01-20] MEDS: LACTATED RINGER'S 500 ML IV ONE (19:32)
[2024-01-20] MEDS: ACETAMINOPHEN 500 MG TAB PO STA (19:44)
[2024-01-20] MEDS ORDERED: MAGNESIUM HYDROXIDE SUSP 30 ML UDC PO PRN (21:43)
[2024-01-20] MEDS ORDERED: bisacodyL 10 MG SUPP PR PRN (21:43)
[2024-01-20] MEDS ORDERED: NALOXONE HCL 0.4 MG/1 ML VIAL/CARP IV PRN (21:43)
[2024-01-20] MEDS: ACETAMINOPHEN 500 MG TAB PO SCH (22:02)
[2024-01-20] MEDS: LACTATED RINGER'S 1,000 ML IV SCH (22:15)
[2024-01-21 06:28] LABS: Basophils # (auto) 0.02 K/uL (0.00-0.20); Basophils % (auto) 0.3 %; Eosinophils # (auto) 0.14 K/uL (0.00-0.50); Eosinophils % (auto) 2.2 %; Hematocrit (blood only) 36.9 % (37.0-47.0); Hemoglobin 12.1 g/dl (12.0-16.0); Immature Granulocytes # (auto) 0.02 K/uL (0.01-0.20); Immature Granulocytes % (auto) 0.3 %; Lymphocytes # (auto) 1.17 K/uL (1.20-3.40); Lymphocytes % (auto) 18.3 %; Mean Corpuscular Hemoglobin 27.5 pg (25.0-34.0); Mean Corpuscular Hgb Conc 32.8 g/dL (32.0-36.0); Mean Corpuscular Volume 83.9 fL (80.0-100.0); Mean Platelet Volume 10.1 fL (9.4-12.4); Monocytes % (auto) 9.4 %; Neutrophils # (auto) 4.44 K/uL (1.40-6.50); Neutrophils % (auto) 69.5 %; Platelet Count 248 K/uL (130-400); RDW Coefficient of Variation 13.2 % (11.5-14.5); RDW Standard Deviation 40.6 fL (36.4-46.3); White Blood Count 6.39 K/ul (4.8-10.8)
[2024-01-21 06:44] LABS: BUN Creatinine Ratio 18.3 (10-20); Calcium 8.5 mg/dl (8.6-10.3); Creatinine Clr Calc Pharmacy 86.1 ml/min; Est GFR (African American) 114.8 ml/min; Est GFR (Non-African American) 99.1 ml/min; Potassium 3.7 mmol/L (3.5-5.1)
--- NOTE | 2024-01-21 07:28 | Orthopedic Consultation ---
Date of Service January 21, 2024 Assessment & Plan (1) Femoral neck fracture: 59-year-old female with a right valgus impacted femoral neck fracture. No underlying hip arthritis. Fracture does not look displaced. Plan: We discussed treatment options. When taken the operating do cannulated screw fixation of his valgus impacted femoral neck fracture. The risks Mente this procedure explained to the patient include but not limited to DVT PE infection neurological injury vascular bleeding palm pain limb range of motion stiffness fairly of her symptoms nonunion malunion need for further surgery. Patient understands and desires to proceed. Form consent is obtained. Were hoping to do this early this afternoon. (2) Clavicle fracture: Treatment of the clavicle fracture is symptomatic. Is not visible even on the chest x-ray. Will treat her with a sling for comfort. No need for any surgical consideration. (3) Syncope and collapse: History of Present Illness Reason for Consultation: . Right hip fracture Right clavicle fracture Requesting Physician: . Attending Physician: Job Ruiz MD . The patient is a 59-year-old female relatively healthy with a history of some hypertension who sustained a fall yesterday from syncopal episode. She recently did get the COVID-vaccine. Not sure whether this has anything to do with it. She is sustained this mechanical fall from syncopal episode. She had acute onset of right hip pain. Marked pain with a temp of ambulation. She also injured her right shoulder. She was seen in the ER medical evaluated. Extensive workup revealed a valgus impacted femoral neck fracture and a small crack of distal clavicle. No other real injuries. We are consulted for evaluation. No pre-existing hip pain. Normal ambulator and works for [employer] remotely. Works in [employer]. Allergies Allergy/AdvReac Type Severity Reaction Status Date / Time sulfamethoxazole Allergy Severe Rash Verified 01/20/24 21:49 [From Bactrim] trimethoprim [From Bactrim] Allergy Severe Rash Verified 01/20/24 21:49 escitalopram [From Lexapro] AdvReac ELAVATES BP Verified 01/20/24 17:18 Home Medications Medication Instructions Recorded Confirmed Type lisinopril 20 mg tablet 20 mg PO QAM 11/09/18 01/20/24 History alprazolam 0.5 mg tablet 0.5 mg PO Q12H PRN Anxiety 01/20/24 01/20/24 History calcium carb-ergocalciferol (vit 1 tab PO DAILY 01/20/24 01/20/24 History D2) 500 mg-125 unit tablet Past Med/Surg History Problem List Syncope and collapse (Acute) Clavicle fracture (Acute) Femoral neck fracture (Acute) Postmenopausal bleeding Rotator cuff tear Calcific tendinitis Leukoplakia of vulva History of cervical dysplasia (2019) 2019 RUPERTO N[place]ON I 2019 - colpo 2019 cotest neg/neg 2021 cotest neg/neg --> per [facility] repeat 3 years Menopausal symptoms Post-menopausal bleeding Hypertension Acne (Acute) Medical History Mild dysplasia of cervix (NAPOLEON I) (2019) Atypical glandular cells of undetermined significance of cervix (2019) Abnormal mammogram Hypertension Surgical History H/O oral surgery S/P fine needle aspiration H/O colposcopy with cervical biopsy with endocervical curettage Family History Grandfather (Paternal) Colorectal cancer Denies family history of Ovarian cancer Breast cancer Social History Smoking Status: Never smoker Do You Dip or Chew Tobacco: No; Hx Alcohol Use: Yes Alcohol type: wine Hx Substance Use: No Preferred Language: Samoan marital status: Current Living Situation: Spouse current occupational status: employed current occupation: [employer] Feels Safe at Home: Yes Diet: regular during the past year weight has: remained stable Physical Activity Frequency: 1-2 Times per Week Physical Activity Frequency Comment: wants to walk more Review of Systems All systems reviewed & are unremarkable except as noted in HPI & below. Physical Exam . Physical examination was a pleasant middle-aged female but looks to be in excellent health. Examination of the right shoulder reveals no obvious bruising or swelling. She is tender in the AC joint area. She can actively elevate her arm without too much of a problem. No real bruising swelling. She is neurologically intact. Shoulder is located. Examination of the right hip reveals no obvious deformity. She describes pain with any type of hip motion in her groin area. No real pain while resting. She cannot quite do a straight leg raise. She can lift it some but it is painful. Leg lengths are equal. No real abnormal rotation. No knee effusion. She is neurologically intact. Results & Data Results & Data Laboratory Results . Diagnostic Findings . X-rays of the right hip as well as a CT scan route reveals a valgus impacted femoral neck fracture. No segment underlying arthritis. It does not look displaced. She is a valgus impacted. CT scan of the chest reveals a nondisplaced distal clavicle fracture. Looking at her chest x-ray this is not even visible. PG Care Time/CCT Total # of Minutes Spent Total Time Spent with Patient: Total time spent is greater than 50% in coordination of care (as documented) at patient's floor/unit and/or counseling patient: Coding Level of Care Code 35615 IN/OBS CONSULT LVL 5,80M (57 - DECISION FOR SURGERY) Diagnoses Femoral neck fracture S72.009A Encounter type: initial encounter Fracture type: closed Laterality: unspecified laterality Clavicle fracture S42.001A Clavicle location: unspecified part of clavicle Encounter type: initial encounter Fracture alignment: nondisplaced Fracture type: closed Laterality: right Syncope and collapse R55 (1) Femoral neck fracture Encounter type: initial encounter Fracture type: closed Laterality: unspecified laterality Qualified Code(s): S72.009A - Fracture of unspecified part of neck of unspecified femur, initial encounter for closed fracture (2) Clavicle fracture Clavicle location: unspecified part of clavicle Encounter type: initial encounter Fracture alignment: nondisplaced Fracture type: closed Laterality: right Qualified Code(s): S42.001A - Fracture of unspecified part of right clavicle, initial encounter for closed fracture
--- NOTE | 2024-01-21 08:01 | Hospitalist Progress Note ---
Date of Service January 21, 2024 Assessment & Plan (1) Femoral neck fracture: Plan: right side secondary to mechanical fall NPO after midnight, IV fluids, bedrest Pain relief - acetaminophen 1g PO TID, morphine 2-4mg IV PRN Medically optimized for surgery at this time. Revised cardiac risk index 0. Vitamin D level in AM, recommend DEXA scan on follow up with PCP (2) Syncope and collapse: Plan: Not particularly concerning history as appears to be vasovagal and recurrent after her COVID vaccines (the only other time she has had a sycopal event) Would recommend she hold her lisinopril prior to vaccination in the future Monitor on telemetry for arryhtmia (3) Clavicle fracture: Plan: Sling (4) Hypertension: Plan: Hold lisinopril Plan VTE Prophyalxis - deferred post operatively Diet - regular, NPO after midnight Disposition - admit to med/tele Admission and Anticipated Discharge Date Admission Date: January 20, 2024 Results & Data Results & Data Vital Signs (Past 12 Hours) Vital Signs Temp Pulse Pulse Resp BP BP Pulse Ox 01/21/24 07:43 98.2 F 75 16 114/75 94 01/21/24 04:00 98.2 F 66 18 112/75 98 01/20/24 23:43 79 01/20/24 21:44 98.4 F 77 16 116/78 97 01/20/24 21:43 83 01/20/24 21:00 76 12 113/66 100 01/20/24 20:33 79 12 124/71 O2 Del Method 01/21/24 07:43 Room Air 01/21/24 04:00 Room Air 01/20/24 23:43 01/20/24 21:44 Room Air 01/20/24 21:43 01/20/24 21:00 Room Air 01/20/24 20:33 PG Care Time/CCT Total # of Minutes Spent Total Time Spent with Patient: Total time spent is greater than 50% in coordination of care (as documented) at patient's floor/unit and/or counseling patient: Coding Diagnoses Femoral neck fracture S72.009A Encounter type: initial encounter Fracture type: closed Laterality: unspecified laterality Syncope and collapse R55 Clavicle fracture S42.001A Clavicle location: unspecified part of clavicle Encounter type: initial encounter Fracture alignment: nondisplaced Fracture type: closed Laterality: right Hypertension I10 (1) Femoral neck fracture Encounter type: initial encounter Fracture type: closed Laterality: unspecified laterality Qualified Code(s): S72.009A - Fracture of unspecified part of neck of unspecified femur, initial encounter for closed fracture (3) Clavicle fracture Clavicle location: unspecified part of clavicle Encounter type: initial encounter Fracture alignment: nondisplaced Fracture type: closed Laterality: right Qualified Code(s): S42.001A - Fracture of unspecified part of right clavicle, initial encounter for closed fracture
--- NOTE | 2024-01-21 10:53 | Hospitalist Progress Note ---
Date of Service January 21, 2024 Assessment & Plan (1) Femoral neck fracture: Plan: - right side secondary to mechanical fall and syncope - NPO, IV fluids, bedrest - Continue with acetaminophen 1g PO TID, morphine 2-4mg IV PRN for pain relief - Vit D levels low on admission - Surgery scheduled for this afternoon, 01/20 (2) Syncope and collapse: Plan: - Appears to be vasovagal and recurrent after her COVID vaccines - Troponin negative on admission, denies CP and SOB, no prior cardiovascular history - Would recommend she hold her lisinopril prior to vaccination in the future - Continue to monitor on telemetry for arrhythmia (3) Clavicle fracture: Plan: - right sided nondisplaced distal clavicle fracture secondary to mechanical fall - currently in sling - continue with pain medication prn (4) Vitamin D deficiency: Plan: - Vit D 01/20 low at 21.6, Ca+ 8.5 - recommend DEXA scan outpt with PCP - continue home Vit D and Calcium supplement post-operatively (5) Hypertension: Plan: - Hold lisinopril due to NPO - can resume post-operatively Plan VTE Prophyalxis - deferred post operatively Diet - NPO awaiting surgery Code status - FULL CODE Admission and Anticipated Discharge Date Admission Date: January 20, 2024 Supervising Physician Co-Signing Physician Notes Patient was seen and examined independently I discussed the case with Michell BREWER I reviewed pertinent past medical social family history and also the plan of care and agree with the plan of care. Patient was seen preoperatively she does vasovagal episode which she sustained fracture of her right hip and clavicle. She is scheduled for operative correction on January [address] Pnea Preoperatively she is without complaints exception for focal pain at the fra cture sites. Cardiopulmonary she is in stable condition with heart regular heartbeat and clear lungs Will see how she does postoperatively with rehabilitation given the fact that she has a fractured clavicle that may make ambulating without certified registered dental assistant device difficult. Holding lisinopril in the perioperative period Any exceptions will be noted below Subjective Upon examination patient was laying in bed with her at bedside. She had no acute events overnight. Patient is doing well, despite the pain in her right hip, although she says it is not bad when she is laying still. On movement she has severe hip pain. Her right clavicle is giving her minimum pain. She is awaiting surgery this afternoon. She denies headaches, dizziness, cough, sore throat, shortness of breath, chest pain, abdimonial pain, diarrhea, numbness, and tingling. Review of Systems Review of Systems: See HPI Physical Exam Physical Exam: The patient is awake, alert and oriented 3, well developed and well nourished, normocephalic and atraumatic, in no acute distress. Non-toxic appearing. HEENT- EOMI, mucous membranes moist. Hearing grossly intact. Heart-normal S1 and S2. No murmurs, rubs or gallops. Lungs-clear bilaterally, no respiratory distress, no accessory muscle use. Abdomen-normal bowel sounds and soft. No ascites noted. Non-tender. Extremities- no clubbing, cyanosis, or edema. could not examine affected leg fully. Psychiatric-normal affect. Results & Data Results & Data Vital Signs (Past 12 Hours) Vital Signs Temp Pulse Pulse Resp BP Pulse Ox O2 Del Method 01/21/24 07:43 36.8 C 75 16 114/75 94 Room Air 01/21/24 04:00 36.8 C 66 18 112/75 98 Room Air 01/20/24 23:43 79 PG Care Time/CCT Total # of Minutes Spent Total Time Spent with Patient: Total time spent is greater than 50% in coordination of care (as documented) at patient's floor/unit and/or counseling patient: Coding Level of Care Code None Diagnoses Femoral neck fracture S72.009A Encounter type: initial encounter Fracture type: closed Laterality: unspecified laterality Syncope and collapse R55 Clavicle fracture S42.001A Clavicle location: unspecified part of clavicle Encounter type: initial encounter Fracture alignment: nondisplaced Fracture type: closed Laterality: right Vitamin D deficiency E55.9 Hypertension I10 (1) Femoral neck fracture Encounter type: initial encounter Fracture type: closed Laterality: unspecified laterality Qualified Code(s): S72.009A - Fracture of unspecified part of neck of unspecified femur, initial encounter for closed fracture (3) Clavicle fracture Clavicle location: unspecified part of clavicle Encounter type: initial encounter Fracture alignment: nondisplaced Fracture type: closed Laterality: right Qualified Code(s): S42.001A - Fracture of unspecified part of right clavicle, initial encounter for closed fracture
[2024-01-21] MEDS: MoRPHine SULFATE 4 MG/ML 1 ML CARP\\VIAL IV PRN (11:40)
[2024-01-21] MEDS ORDERED: MIDAZOLAM HCL 1 MG/ML 2ML VIAL ONE (12:38)
[2024-01-21] MEDS ORDERED: KETAMINE HCL 10MG/ML SYR ONE (12:39)
[2024-01-21] MEDS ORDERED: fentaNYL citrate PF 100 MCG/2 ML VIAL ONE (12:39)
[2024-01-21] MEDS ORDERED: LIDOCAINE 2% 2 ML VIAL/AMP(20MG/ML) INFIL ONE (12:42)
[2024-01-21] MEDS ORDERED: DEXAMETHASONE SOD INJ 4 MG/ML VIAL ONE (12:42)
[2024-01-21] MEDS ORDERED: ONDANSETRON INJ 2 MG/ML 2 ML VIAL ONE ×2 (12:42→14:28)
[2024-01-21] MEDS ORDERED: GLYCOPYRROLATE 0.2 MG/ML VIAL ONE (12:42)
[2024-01-21] MEDS ORDERED: PROPOFOL IV EMULSION 10 MG/ML 20 ML VIAL IV ONE (12:42)
--- NOTE | 2024-01-21 12:46 | Electrocardiogram Report ---
Test Reason : Blood Pressure : */* mmHG Vent. Rate : 86 BPM Atrial Rate : 86 BPM P-R Int : 150 ms QRS Dur : 72 ms QT Int : 348 ms P-R-T Axes : 21 60 59 degrees QTcB Int : 416 ms Normal sinus rhythm Normal ECG When compared with ECG of 09-Nov-2018 20:20, Nonspecific T wave abnormality now evident in Anterior leads Confirmed by Wellington Mccord ([id number]) on 01/21/2024 12:46:24 PM Referred By: REFERRED SELF Confirmed By: Wellington Mccord
[2024-01-21] MEDS: ceFAZolin 2,000 MG/15 ML IV PUSH IV ONE (13:35)
[2024-01-21] MEDS: ceFAZolin 2000MG 2,000 MG/15 ML SYR IV ONE (14:02)
[2024-01-21] MEDS ORDERED: PROMETHAZINE HCL 6.25 MG in SODIUM CHLORIDE 0.9% 50 ML IV PRN (14:13)
[2024-01-21] MEDS ORDERED: ePHEDrine sulfate 50 MG/ML AMP IV PRN (14:13)
[2024-01-21] MEDS ORDERED: ATROPINE SULFATE 0.1 MG/ML 10ML SYR IV PRN (14:13)
[2024-01-21] MEDS ORDERED: ONDANSETRON INJ 2 MG/ML 2 ML VIAL IV PRN ×2 (14:13→18:38)
--- NOTE | 2024-01-21 14:13 | Anesthesiology Consultation ---
Date of Service January 21, 2024 Assessment & Plan Chart Review Chart Review: Acceptable Risk for Surgery and Patient NOT seen in Pre Admission Testing Consults Requested none ASA ASA2 Proposed Anesthesia Anesthesia Type: General Risk / Benefits Reviewed With: PT / POA / Parent / Guardian, Accepts Plan and Informed Consent Obtained History Surgery Operation Date: 01/21/24 13:20 Proposed Procedures p Open Reduction Internal Fixation Hip Fracture Right - Subhash Pena MD Height/Weight Height: 5 ft 4 in Weight: 63 kg Allergies Allergy/AdvReac Type Severity Reaction Status Date / Time sulfamethoxazole Allergy Severe Rash Verified 01/20/24 21:49 [From Bactrim] trimethoprim [From Bactrim] Allergy Severe Rash Verified 01/20/24 21:49 escitalopram [From Lexapro] AdvReac ELAVATES BP Verified 01/20/24 17:18 Medications Home Medications Medication Instructions Recorded Confirmed Last Taken lisinopril 20 mg tablet 20 mg PO QAM 11/09/18 01/20/24 01/19/24 alprazolam 0.5 mg tablet 0.5 mg PO Q12H PRN Anxiety 01/20/24 01/20/24 01/20/24 calcium carb-ergocalciferol (vit 1 tab PO DAILY 01/20/24 01/20/24 01/19/24 D2) 500 mg-125 unit tablet Active Medications Generic Name Dose Route Start Last Admin Trade Name Freq PRN Reason Stop Dose Admin Acetaminophen 1,000 mg 01/20/24 21:43 01/21/24 07:49 Acetaminophen 500 Mg Tab PO 02/19/24 21:42 Not Given TID ANDREINA Lactated Ringer's 1,000 mls @ 125 mls/hr 01/20/24 22:00 01/21/24 14:00 Lr IV 01/22/24 05:59 Infused .Q8H ANDREINA Infusion Morphine Sulfate 4 mg 01/20/24 21:43 01/21/24 11:40 Morphine Sulfate 4 Mg/Ml 1 Ml Carp\Vial IV 02/03/24 21:42 4 mg Q3H PRN Administration Pain (6,7,8,9,10) NPO Date Last Intake of Fluids: 01/20/24 Time Last Intake of Fluids: 21:00 Date Last Intake of Solids: 01/20/24 Time Last Intake of Solids: 20:00 Past Medical History Medical History Mild dysplasia of cervix (NAPOLEON I) (2019) Atypical glandular cells of undetermined significance of cervix (2019) Abnormal mammogram Hypertension Exercise / Class Metabolic Activity II 4-5 Yardwork/Stairs/Walk up hill Past Family History Family History Grandfather (Paternal) Colorectal cancer Denies family history of Ovarian cancer Breast cancer Past Surgical History Surgical History H/O oral surgery S/P fine needle aspiration H/O colposcopy with cervical biopsy with endocervical curettage Past Anesthesia History No Hx of Anesthesia Complications and No Family Hx of Anesthesia Complications History of PONV No Hx of PONV and No Hx of Motion Sickness Social History Smoking Status: Never smoker Do You Dip or Chew Tobacco: No Hx Alcohol Use: Yes Alcohol type: wine alcohol intake frequency: a few times a month Hx Substance Use: No Physical Exam Vital Signs Last Vital Signs Temp 37.3 C 01/21/24 13:23 Pulse 92 H 01/21/24 13:23 Resp 20 01/21/24 13:23 BP 152/83 H 01/21/24 13:23 Pulse Ox 99 01/21/24 13:23 O2 Del Method Room Air 01/21/24 13:23 ENMT Mouth: no dentition abnormality Thyromental Distance: > or= 3.5 Finger Breadths Mallampati Class: II Neck normal visual inspection Respiratory normal respiratory effort Auscultation: lungs clear to auscultation bilaterally Cardiovascular Rate/Rhythm: regular rate and regular rhythm Psychiatric Orientation: alert Testing Laboratory Results 01/21/24 05:21 01/21/24 05:21 PT 10.3 Seconds (9.0-12.0) 01/20/24 15:02 INR 0.9 (0.9-1.1) 01/20/24 15:02 APTT 27 Seconds (21-31) 01/20/24 15:02 Urine Color Yellow 01/20/24 Unknown Urine Appearance Clear (Clear) 01/20/24 Unknown Urine pH 7.0 (4.5-7.5) 01/20/24 Unknown Ur Specific [place] > 1.045 (1.000-1.030) H 01/20/24 Unknown Urine Protein Negative (Negative) 01/20/24 Unknown Urine Glucose (UA) Negative (Negative) 01/20/24 Unknown Urine Ketones Negative (Negative) 01/20/24 Unknown Urine Nitrite Negative (Negative) 01/20/24 Unknown Ur Leukocyte Esterase Negative (Negative) 01/20/24 Unknown Blood Type O Positive 01/20/24 20:27 Antibody Screen NEGATIVE 01/20/24 20:27
[2024-01-21] MEDS ORDERED: TRANEXAMIC ACID 100 MG/ML 10 ML VIAL IV ONE (14:20)
[2024-01-21] MEDS: TRANEXAMIC ACID / 0.7% NACL 1,000 MG/100 ML BAG IV ONE (14:27)
[2024-01-21] MEDS ORDERED: ePHEDrine sulfate 50 MG/5 ML SYR ONE (14:28)
[2024-01-21] MEDS ORDERED: KETOROLAC 30 MG/ML VIAL ONE (14:28)
[2024-01-21] MEDS: BUPIVACAINE/EPINEPHRINE 0.5% MPF 1:200,000 30 ML VIAL ONE (14:45)
--- NOTE | 2024-01-21 15:07 | Operative Report ---
PG Post Operative Report Pre & Post Diagnosis Operation Date: 01/21/24 13:20 Pre-Op Diagnosis: RIGHT VALGUS IMPACTED FEMORAL NECK/SUBCAPITAL HIP FRACTURE Post-Op Diagnosis: RIGHT VALGUS IMPACTED FEMORAL NECK/SUBCAPITAL HIP FRACTURE I identified the patient and participated in the time-out.: Yes Procedure Operation Date: 01/21/24 13:20 Actual Procedures p Right Hip Open Reduction Internal Fixation, Cannulated Screws(Right) - Subhash Pnea MD Surgeon Subhash Pena MD Director Credit Risk None Estimated Blood Loss 50 Findings Consistent with Post-Op Diagnosis Specimens None Anesthesia Type General Complications none Disposition Accompanied Patient To Recovery: No Indications The patient is a 59-year-old female who sustained a a syncopal episode yesterday. She had acute onset of pain and was unable to ambulate afterwards. She brought the emergency room x-ray of a valgus impacted femoral neck fracture. She also had a nondisplaced clavicle fracture. Patient is medically optimized indicated for surgical treatment. Description of Procedure Operative implants consist of: 1. Synthes 7.3 long threaded cannulated screw x 1. 2. Synthes 7.3 a short threaded cannulated screw x 2 with washers. The patient was taken the op room, identified, placed on the operating table in the supine position. All contact areas were appropriately padded. IV antibiotics tried by anesthesia team. A general anesthetic was implemented. The patient was then transferred to the fracture table. The right leg was placed in boot traction and the left leg was placed in a well-leg sood. Appl ied some longitudinal traction of the right leg and internally rotated the foot so it pointed to the ceiling. X-ray was brought in. The fracture was valgus impacted and anatomically aligned. The right hip area was then scrubbed with Hibiclens, prepped with ChloraPrep and draped in usual sterile fashion. A 4 cm incision was made over the lateral aspect of the thigh in line with the femur. Sharp dissection was carried through subcutaneous tissue down to level the IT band. The IT band was incised longitudinally. The vastus lateralis was retracted anteriorly. A guidewire was then placed in the inferior aspect the femoral neck and in the midline on the lateral film. This was placed just above the femoral neck. This is adjusted into ideal position. Once this was placed placed to additional walk guidewire superior to this 1 anterior and superior 1 posterior and superior. These were verified fluoroscopically. I then placed a single both 7.3 long threaded cannulated screw inferiorly. I then placed two 7.3 short threaded cannulated screws superiorly as both of them with washers. Fracture is anatomically aligned other than the valgus impaction. Screw length was appropriate. Some final x-rays were obtained. Attention drawn toward closing. The wounds irrigated normal saline. I did inject locally with 30 cc of half percent Marcaine with epinephrine. The IT band was then closed with #1 Vicryl suture running fashion with subcutaneous tissue then closed with 2 layers with the deep layer and 1 Vicryl suture in the subcutaneous tissue with 2 Dexon suture in a buried interrupted fashion. Skin was closed skin sophie. Leg was then cleaned and dried a sterile dressing with Xeroform, 4 fours, ABD pad and foam tape was applied. The patient then brought out of general esthesia and transferred to the recovery room in stable condition. Patient tolerated procedure well and there were no complications. I attest to the content of the Intraoperative Record and any orders documented therein. Any exceptions are noted below.
[2024-01-21] MEDS: fentaNYL citrate PF 100 MCG/2 ML VIAL IV PRN (15:25)
--- NOTE | 2024-01-21 16:02 | Fluoroscopy Report ---
FL hip RT 2-3V CLINICAL HISTORY: ADD ON RIGHT HIP CANNULATED SCREWS TECHNIQUE: 2 views were obtained with the C-arm in the OR with the above procedure. Total fluoroscopy time was 54.1 seconds. Radiation dose was 12.23 mGy. Comparison: Comparison is made to CT abdomen pelvis 01/20/2024 FINDINGS/IMPRESSION: Intraoperative images were obtained of right hip cannulated screw placement. Fra cture fragments are in satisfactory alignment. Please correlate with intraoperative fluoroscopy and operative report. ACT 112: Negative or not required by law. Electronically signed by: Axel Sheffield M.D. 01/21/2024 4:01 PM
[2024-01-21] MEDS: TRANEXAMIC ACID / 0.7% NACL 1000MG/100ML BAG IV ONE (16:56)
--- NOTE | 2024-01-21 17:05 | Anesthesiology Progress Note ---
Date of Service January 21, 2024 Anesthesia Post Procedure Vital Signs Vital Signs: Temp Pulse Pulse Pulse Pulse Resp BP 01/21/24 15:40 36.5 C 84 12 01/21/24 15:30 91 H 12 01/21/24 15:20 94 H 16 01/21/24 15:10 90 14 01/21/24 15:00 36.5 C 93 H 10 L 01/21/24 13:23 37.3 C 92 H 20 01/21/24 11:31 36.8 C 84 16 01/21/24 07:43 36.8 C 75 16 01/21/24 04:00 36.8 C 66 18 01/20/24 23:43 79 01/20/24 21:44 36.9 C 77 16 01/20/24 21:43 83 01/20/24 21:00 76 12 113/66 01/20/24 20:33 79 12 124/71 01/20/24 20:00 90 12 152/86 H 01/20/24 19:33 85 16 125/83 01/20/24 19:00 82 12 125/87 01/20/24 18:59 88 01/20/24 18:21 84 16 136/85 BP Pulse Ox O2 Del Method O2 Flow Rate 01/21/24 15:40 114/74 95 Room Air 01/21/24 15:30 118/70 96 Room Air 01/21/24 15:20 124/79 100 Oxymask 4 01/21/24 15:10 116/67 100 Oxymask 4 01/21/24 15:00 115/58 L 100 Oxymask 6 01/21/24 13:23 152/83 H 99 Room Air 01/21/24 11:31 127/83 99 Room Air 01/21/24 07:43 114/75 94 Room Air 01/21/24 04:00 112/75 98 Room Air 01/20/24 23:43 01/20/24 21:44 116/78 97 Room Air 01/20/24 21:43 01/20/24 21:00 100 Room Air 01/20/24 20:33 01/20/24 20:00 01/20/24 19:33 98 Room Air 01/20/24 19:00 01/20/24 18:59 01/20/24 18:21 98 Room Air Pain Intensity Right Hip: Pain Intensity: 4 Transfer of Care Handoff Completed per policy Notes Mental Status: alert / awake / arousable and participated in evaluation Patient Amnestic to Procedure: Yes Nausea / Vomiting: adequately controlled Pain: adequately controlled Airway Patency, RR, SpO2: stable & adequate BP & HR: stable & adequate Hydration State: stable & adequate Anesthetic Complications: no major complications apparent and Pt Satisfied with anesthetic care
--- NOTE | 2024-01-21 17:18 | Billing Data ---
Date of Service January 21, 2024 Coding Level of Care Code 12239 INT INP/OBS CARE
[2024-01-21] MEDS: SODIUM CHLORIDE 0.9% 1,000 ML IV SCH (17:26)
[2024-01-21] MEDS: ceFAZolin 1000MG 1,000 MG/7.5 ML SYR IV SCH (20:42)
[2024-01-21] MEDS: ASPIRIN 81 MG ECTAB PO SCH (20:44)
[2024-01-22 05:43] LABS: Basophils # (auto) 0.02 K/uL (0.00-0.20); Basophils % (auto) 0.2 %; Eosinophils # (auto) 0.01 K/uL (0.00-0.50); Eosinophils % (auto) 0.1 %; Hematocrit (blood only) 34.5 % (37.0-47.0); Hemoglobin 11.6 g/dl (12.0-16.0); Immature Granulocytes # (auto) 0.04 K/uL (0.01-0.20); Immature Granulocytes % (auto) 0.3 %; Lymphocytes # (auto) 0.98 K/uL (1.20-3.40); Lymphocytes % (auto) 8.1 %; Mean Corpuscular Hemoglobin 27.6 pg (25.0-34.0); Mean Corpuscular Hgb Conc 33.6 g/dL (32.0-36.0); Mean Corpuscular Volume 82.1 fL (80.0-100.0); Monocytes # (auto) 0.67 K/uL (0.11-0.59); Monocytes % (auto) 5.6 %; Neutrophils # (auto) 10.33 K/uL (1.40-6.50); Neutrophils % (auto) 85.7 %; Platelet Count 280 K/uL (130-400); RDW Coefficient of Variation 12.9 % (11.5-14.5); White Blood Count 12.05 K/ul (4.8-10.8)
[2024-01-22 06:01] LABS: BUN Creatinine Ratio 16.9 (10-20); Calcium 8.4 mg/dl (8.6-10.3); Creatinine Clr Calc Pharmacy 72.8 ml/min; Est GFR (African American) 107.3 ml/min; Est GFR (Non-African American) 92.6 ml/min; Potassium 4.4 mmol/L (3.5-5.1)
[2024-01-22] MEDS: CALCIUM 600MG + VIT D 400 IU TAB PO SCH (07:40)
--- NOTE | 2024-01-22 13:30 | Orthopedic Progress Note ---
Date of Service January 22, 2024 Assessment & Plan (1) Femoral neck fracture: Plan: 59-year-old female postop day 1 from cannulated screw fixation of a valgus impacted femoral neck fracture. She is doing well. Some pain and soreness which is to be expected. Everything else looks to be in order. Organ to keep her 50% weightbearing. I will be for 6 weeks. That she is orthopedically stable anytime for discharge. DVT prophylaxis will be thigh-high teds, SCDs, aspirin twice a day for 6 weeks. With suspected the clavicle treatment is symptomatic. She can weight-bear as tolerated and use with a walker a sterile pain will tolerate. Sling for comfort. Will follow this up in 2 weeks or so. Does not need any further management. Treatment is essentially symptomatic. (2) Clavicle fracture: Admission and Anticipated Discharge Date Admission Date: January 20, 2024 Subjective 59-year-old female postop day 1 from cannulated screw fixation of a valgus impacted femoral neck fracture. She is doing okay this morning. Has some soreness in her hip. Has not been up and walking yet. No chest pain shortness of breath. Not feeling dizzy or lightheaded. Shoulder is not bothering her as long as she is not using it. Physical Exam Physical Exam: Latosha vera is a pleasant middle-age female. She is talking to the hospitalist lyses her today. Examination of right hip and leg reveals dressing clean dry and intact. Leg lengths are equal. Thigh is soft and supple. She is neurologically intact examination of the right shoulder reveals no visible deformity or bruising or swelling. She is tender at the AC joint. She is neurologically intact. Results & Data Vital Signs (Past 12 Hours) Vital Signs Temp Pulse Pulse Pulse Resp BP Pulse Ox 01/22/24 11:16 37.4 C 66 20 116/77 99 01/22/24 07:37 36.8 C 57 L 20 107/71 96 01/22/24 07:08 62 01/22/24 02:41 36.8 C 80 16 105/67 96 O2 Del Method 01/22/24 11:16 Room Air 01/22/24 07:37 Room Air 01/22/24 07:08 01/22/24 02:41 Room Air Laboratory Results Hemoglobin is 11.6. Hematocrit is 34.5. Electrolytes are stable. (1) Femoral neck fracture Encounter type: initial encounter Fracture type: closed Laterality: unspecified laterality Qualified Code(s): S72.009A - Fracture of unspecified part of neck of unspecified femur, initial encounter for closed fracture (2) Clavicle fracture Clavicle location: unspecified part of clavicle Encounter type: initial encounter Fracture alignment: nondisplaced Fracture type: closed Laterality: right Qualified Code(s): S42.001A - Fracture of unspecified part of right clavicle, initial encounter for closed fracture
--- NOTE | 2024-01-22 14:27 | Hospitalist Progress Note ---
Date of Service January 22, 2024 Assessment & Plan (1) Femoral neck fracture: Plan: Patient sustained right femoral neck fracture with fall status post ORIF with pinning on 01/21/[address] Pena Patient is scheduled Tylenol still with significant pain with physical therapy and Occupational Therapy recommending rehab at this time. Adding tramadol for pain control Admission vitamin D level low augmented with oral supplementation Patient has acute blood loss anemia postoperatively not in transfusion range (2) Syncope and collapse: Plan: Because of vagal syncope after injection patient also suffered a clavicular fracture. No recurrence of orthostasis (3) Hypertension: Plan: Lisinopril has been on hold in the perioperative period. Blood pressure has been controlled Plan Aspirin twice daily for DVT prevention per orthopedics Case management to assist in rehab placement Admission and Anticipated Discharge Date Admission Date: January 20, 2024 Subjective pt has significant pain at operative site and this limited performance in physical therapy Physical Exam Physical Exam: cardiac exam is regular lungs are clear ext with intact distal sensation and strength Results & Data Results & Data Vital Signs (Past 12 Hours) Vital Signs Temp Pulse Pulse Pulse Resp BP Pulse Ox 01/22/24 14:19 66 01/22/24 11:16 99.3 F 66 20 116/77 99 01/22/24 07:37 98.2 F 57 L 20 107/71 96 01/22/24 07:08 62 01/22/24 02:41 98.2 F 80 16 105/67 96 O2 Del Method 01/22/24 14:19 01/22/24 11:16 Room Air 01/22/24 07:37 Room Air 01/22/24 07:08 01/22/24 02:41 Room Air Laboratory Results review cbc review chemistry PG Care Time/CCT Total # of Minutes Spent Total Time Spent with Patient: Total time spent is greater than 50% in coordination of care (as documented) at patient's floor/unit and/or counseling patient: Coding Level of Care Code 77291 SUB INP/OBS CARE 2/35MIN Diagnoses Femoral neck fracture S72.009A Encounter type: initial encounter Fracture type: closed Laterality: unspecified laterality Syncope and collapse R55 Hypertension I10 (1) Femoral neck fracture Encounter type: initial encounter Fracture type: closed Laterality: unspecified laterality Qualified Code(s): S72.009A - Fracture of unspecified part of neck of unspecified femur, initial encounter for closed fracture
[2024-01-22] MEDS: traMADol HCL 50 MG TABLET PO PRN (17:21)
[2024-01-23 07:09] VITALS: RESP 16; TEMP 98.1
--- NOTE | 2024-01-23 09:05 | Discharge Summary ---
Discharge Summary Date of Service January 23, 2024 Principal Dx & Hospital Course #1 = Principal Diagnosis (1) Femoral neck fracture: - Patient sustained right femoral neck fracture with fall status post ORIF with pinning on 01/21/[address] Pena. - Patient is scheduled Tylenol and Tramadol prn for pain control; pain well managed - physical therapy and Occupational Therapy recommending rehab - Admission vitamin D level low augmented with oral supplementation - Patient has acute blood loss anemia postoperatively not in transfusion range - ortho recommending 50% weightbearing as tolerated - to be discharged to [facility] today 01/23/24 (2) Clavicle fracture: - Status post mechanical fall due to vagal syncope - ortho recommending weight bearing as tolerated with sling for comfort (3) Syncope and collapse: - Vagal syncope after injection resulting in fall that causes femoral neck fracture and clavicle fracture - No recurrence of orthostasis (4) Hypertension: - Lisinopril has been on hold in the perioperative period - Blood pressure has been controlled - Okay to resume on discharge Plan Aspirin twice daily for 6 weeks for DVT prevention per orthopedics Discharge to [facility] today 01/23/24 Notes For Next Care Provider Ortho surgery recommended for patient to be on 81 mg aspirin twice daily for 6 weeks post-op, until 03/03. Admission HPI Per Admitting Provider Dee Dee Epps is a 59 year old female presents to the ER with syncope. She received a COVID-vaccine yesterday and while urinating and thinks she had a complete syncopal event around 6am (lightheaded and room spinning prior) hitting the right side of her head. Having right shoulder pain and hip pain following with fall. She crawled to the bedroom but was in so much pain her brought her in by wheelchair. She did take a Xanax after the fall to help with anxiety but not before the fall. She takes Xanax once every 2 weeks or so. Right hip pain severity 10/10 on walking opr movement, current severity 1-2/10. She did not take her lisinopril today. No prior cardiovascular history. No shortness of breath or chest pain on climbing up a flight of stairs or 1 mile walk. She reports one other episode of syncope with her other COVID vaccine. Admission Exam Per Admitting Provider Constitutional: WD/WN, vitals as above Eyes: PERRL, conjunctivae normal, anicteric sclerae Respiratory: normal respiratory effort, lungs clear to auscultation Cardiovascular: RRR, no murmur, no edema Gastrointestinal (Abdomen): normal bowel sounds, soft, nontender, no hepatosplenomegaly Musculoskeletal: right leg with groin pain on any movement. dorsiflexion and plantarflexion 5/5, DP/PT intact Mild pain over lateral aspect of right clavicle Skin: no rashes, warm and dry Neurologic: moves all extremities and awake; not confused Psychiatric: A+Ox3, euthymic affect Discharge Exam The patient is awake, alert and oriented 3, well developed and well nourished, normocephalic and atraumatic, in no acute distress. Non-toxic appearing. HEENT- EOMI, mucous membranes moist. Hearing grossly intact. Heart-normal S1 and S2. No murmurs, rubs or gallops. Lungs-clear bilaterally, no respiratory distress, no accessory muscle use. Abdomen-normal bowel sounds and soft. No ascites noted. Non-tender. Extremities- no clubbing, cyanosis, or edema. Rheumatologic- sensorineural exam within normal limits. Decreased range of motion due to pain of right hip. Psychiatric- anxious affect. Discharge Plan Discharge Items Patient Disposition: Transfer Inpatient Rehab Fac Reason For Visit: RIGHT HIP FRACTURE Discharge Diagnosis: Right Hip Fracture Right Clavicle Fracture Condition on Discharge: Good Activity: Per Instructions section Activity Comment: Partial Weightbearing on right leg for 6 weeks Weightbearing: Right partial Weightbearing Comment: Partial Weighbearing/50% right leg for 6 weeks Non-emergency contact: Surgeon Call non-emergency contact if: you have any medication questions, your symptoms worsen, your pain is not controlled, your pain is worsening, you have a fever, your wound has increased redness, your wound has increased drainage and your wound pain has increased Follow-up/Referrals: Subhash Pena MD [Physician] - (Orthopedic follow-up 2-3 weeks from surgery date.) Anthony Trejo MD [Primary Care Provider] - Diet: Regular Addtl Attending Provider Instructions: 50% Weightbearing right leg for 6 weeks. 81 mg Aspirin twice daily for 6 weeks post-op. Pending Studies at Discharge: No Stand-Alone Forms: [facility] Skilled Items Patient informed of condition?: Yes DNR: No Discharge Level of Care: Acute rehab Communicable Disease: No Discharge Prognosis: Stable Lines: None Urinary Catheter: No Medications and DC Order Prescriptions: Continued lisinopril 20 mg tablet 20 mg PO QAM calcium carbonate-vitamin D2 500-125 mg-unit Tablet 1 tab PO DAILY alprazolam 0.5 mg tablet 0.5 mg PO Q12H PRN (Reason: Anxiety) Discharge Orders: Discharge Order (Routine); Ordered 01/23/24 Ordered By: Michell Wagner/Other Patient Handouts: Understanding Hip Fractures Admission Data Admit Date/Time: 01/20/24 17:24 Attending Provider: Job Ruiz Admit Provider: Yury Schilling Primary Care Provider: Anthony Trejo Other Providers: Subhash Pena; [facility]; Yury Schilling Other Interventions: Discharge Summary Assessment (RN) Last Done: 01/23/24 13:48 Hospital Stay Data Consultations 01/20/24 17:03 Consult Orthopedic Surgery Routine 01/20/24 17:04 ED Decision to Admit Stat 01/20/24 21:43 Consult Orthopedic Surgery Routine Procedures Performed Operation Date: 01/21/24 13:20 Actual Procedures p Right Hip Open Reduction Internal Fixation, Cannulated Screws(Right) - Subhash Pena MD Diagnostic Imagining Performed Abdomen/Pelvis CT 01/20/24 15:06 CT angio chest PE protocol, CT abd pelvis IV con only CT DOSE: 2575. mGy.cm HISTORY: 59 years-old Female with ro pe. Acute chest and abdominal pain status post fall TECHNIQUE: Multiple CTA images of the chest were obtained after the intravenous administration of [address] abdomen and pelvis with IV contrast also obtained. Coronal and sagittal MIPS were obtained from the axial data set and were submitted for review. All measurements were obtained according to NASCET criteria. A dose lowering technique was utilized adhering to the principles of ALARA. COMPARISON: Mammogram 01/08/2024. FINDINGS: CTA: Mild cardiomegaly. No thoracic aortic aneurysm or dissection. No pleural effusion. No pulmonary emboli identified. CT CHEST: Multinodular thyroid with nodules on the left measuring up to 1.7 cm. No lymphadenopathy. No pneumothorax, pleural effusion or pulmonary edema. Minimal dependent subsegmental bibasilar atelectasis. Minimal biapical pleural parenchymal scarring. Central airways are patent. Indeterminate 1.2 cm soft tissue attenuating ovoid circumscribed mass of the lateral mid right breast on image 56, also noted on prior mammogram. There is no paravertebral edema. Subtle acute nondisplaced fracture of the distal clavicle on image 210 series 8. Lumbar [address]iosis. CT ABDOMEN AND PELVIS WITH IV CONTRAST: No free air. Unremarkable spleen, pancreas and adrenal glands. The gallbladder and liver are within normal limits. Subcentimeter hypodense focus of the right hepatic lobe on image 85 series 10 and suggestive of a probable cyst. Patency of the hepatic and portal veins. Unremarkable kidneys without hydronephrosis. Bladder wall thickening with partial distention. Dictated collecting systems and ureters on the left. Atherosclerosis of the abdominal aorta without aneurysm. No lymphadenopathy. No bowel obstruction or bowel wall thickening. Trace nonspecific free pelvic fluid. Normal appendix. Mildly impacted nondisplaced transcervical right proximal femoral fracture. No additional acute fracture identified. Lumbar levoscoliosis. IMPRESSION: 1. Subtle acute nondisplaced fracture of the distal right clavicle. 2. No acute displaced rib fracture or pneumothorax. 3. No pulmonary emboli. 4. Acute mildly impacted nondisplaced transcervical fracture of the proximal right femur. 5. No evidence of acute solid organ injury. ACT 112: Negative or not required by law. The above report was generated using voice recognition software. It may contain grammatical, syntax or spelling errors. Electronically signed by: Davon Carreon M.D. 01/20/2024 4:[address] 01/20/24 15:06 CT cervical spine wo con CLINICAL HISTORY: 59 years-old Female with fall. Acute neck injury status post fall COMPARISON: Head CT of same day TECHNIQUE: Multiple axial CT images of the cervical spine were obtained without contrast. A dose lowering technique was utilized adhering to the principles of ALARA. FINDINGS: Mild to moderate intervertebral disc space narrowing with small posterior disc osteophyte complex at C5-C6. Mild multilevel uncovertebral hypertrophy and facet arthrosis. Minimal chronic appearing T1 and T2 wedge deformities. No acute cervical spine fracture or subluxation is identified. Multinodular thyroid with hypodense nodules measuring up to 1.7 cm on the left. The cervical soft tissues appear unremarkable. The visualized lung apices appear clear. IMPRESSION: 1. No acute cervical spine fracture or subluxation. 2. Multinodular thyroid. ACT 112: Negative or not required by law. The above report was generated using voice recognition software. It may contain grammatical, syntax or spelling errors. Electronically signed by: Davon Carreon M.D. 01/20/2024 4:41 PM Chest X-Ray 01/20/24 15:06 XR chest 1V portable HISTORY: 59 years-old Female Chest pain, nonspecific COMPARISON: 11/09/2018 TECHNIQUE: AP view of the chest FINDINGS: The cardiomediastinal silhouette is unremarkable. The lungs and pleural spaces are clear. No pneumothorax is seen. The bony thorax is grossly intact. A surgical clip projects over the left breast laterally. There is mild S-shaped thoracic scoliosis. IMPRESSION: No active disease in the chest. ACT 112: Negative or not required by law. The above report was generated using voice recognition software. It may contain grammatical, syntax or spelling errors. Electronically signed by: Davon Carreon M.D. 01/20/2024 4:07 PM Femur X-Ray 01/20/24 15:06 XR pelvis 1-2V routine, XR femur RT 2V routine HISTORY: 59 years-old Female fall acute pain of the pelvis and right hip status post fall COMPARISON: None TECHNIQUE: AP view of the pelvis with 2 views of the right hip FINDINGS: PELVIS: Mild osteoarthritis of the hips. Pelvic ring is intact. Acute right proximal femoral fracture. FEMUR: There is an acute nondisplaced transcervical fracture of the right femoral neck with mild impaction. No dislocation or additional acute fracture. IMPRESSION: Acute mildly impacted nondisplaced transcervical fracture of the proximal right femur. ACT 112: Negative or not required by law. The above report was generated using voice recognition software. It may contain grammatical, syntax or spelling errors. Electronically signed by: Davon Carreon M.D. 01/20/2024 4:[address] 01/20/24 15:06 CT head/brain wo con CLINICAL HISTORY: 59 years-old Female with fall. Acute head injury status post fall TECHNIQUE: Multiple axial CT images of the head were obtained without contrast. A dose lowering technique was utilized adhering to the principles of ALARA. COMPARISON: CT cervical spine of same day FINDINGS: No acute intracranial hemorrhage, midline shift, intracranial mass, hydrocephalus, territorial ischemia or abnormal extra-axial collection. The calvarium is intact. The paranasal sinuses, mastoid air cells, and middle ear cavities are clear. IMPRESSION: No acute intracranial abnormality or fracture. ACT 112: Negative or not required by law. The above report was generated using voice recognition software. It may contain grammatical, syntax or spelling errors. Electronically signed by: Davon Carreon M.D. 01/20/2024 4:38 PM Pelvis X-Ray 01/20/24 15:06 XR pelvis 1-2V routine, XR femur RT 2V routine HISTORY: 59 years-old Female fall acute pain of the pelvis and right hip status post fall COMPARISON: None TECHNIQUE: AP view of the pelvis with 2 views of the right hip FINDINGS: PELVIS: Mild osteoarthritis of the hips. Pelvic ring is intact. Acute right proximal femoral fracture. FEMUR: There is an acute nondisplaced transcervical fracture of the right femoral neck with mild impaction. No dislocation or additional acute fracture. IMPRESSION: Acute mildly impacted nondisplaced transcervical fracture of the proximal right femur. ACT 112: Negative or not required by law. The above report was generated using voice recognition software. It may contain grammatical, syntax or spelling errors. Electronically signed by: Davon Carreon M.D. 01/20/2024 4:09 PM Chest CTA 01/20/24 15:52 CT angio chest PE protocol, CT abd pelvis IV con only CT DOSE: 2575. mGy.cm HISTORY: 59 years-old Female with ro pe. Acute chest and abdominal pain status post fall TECHNIQUE: Multiple CTA images of the chest were obtained after the intravenous administration of [address] abdomen and pelvis with IV contrast also obtained. Coronal and sagittal MIPS were obtained from the axial data set and were submitted for review. All measurements were obtained according to NASCET criteria. A dose lowering technique was utilized adhering to the principles of ALARA. COMPARISON: Mammogram 01/08/2024. FINDINGS: CTA: Mild cardiomegaly. No thoracic aortic aneurysm or dissection. No pleural effusion. No pulmonary emboli identified. CT CHEST: Multinodular thyroid with nodules on the left measuring up to 1.7 cm. No lymphadenopathy. No pneumothorax, pleural effusion or pulmonary edema. Minimal dependent subsegmental bibasilar atelectasis. Minimal biapical pleural parenchymal scarring. Central airways are patent. Indeterminate 1.2 cm soft tissue attenuating ovoid circumscribed mass of the lateral mid right breast on image 56, also noted on prior mammogram. There is no paravertebral edema. Subtle acute nondisplaced fracture of the distal clavicle on image 210 series 8. Lumbar levoscoliosis. CT ABDOMEN AND PELVIS WITH IV CONTRAST: No free air. Unremarkable spleen, pancreas and adrenal glands. The gallbladder and liver are within normal limits. Subcentimeter hypodense focus of the right hepatic lobe on image 85 series 10 and suggestive of a probable cyst. Patency of the hepatic and portal veins. Unremarkable kidneys without hydronephrosis. Bladder wall thickening with partial distention. Dictated collecting systems and ureters on the left. Atherosclerosis of the abdominal aorta without aneurysm. No lymphadenopathy. No bowel obstruction or bowel wall thickening. Trace nonspecific free pelvic fluid. Normal appendix. Mildly impacted nondisplaced transcervical right p roximal femoral fracture. No additional acute fracture identified. Lumbar levoscoliosis. IMPRESSION: 1. Subtle acute nondisplaced fracture of the distal right clavicle. 2. No acute displaced rib fracture or pneumothorax. 3. No pulmonary emboli. 4. Acute mildly impacted nondisplaced transcervical fracture of the proximal right femur. 5. No evidence of acute solid organ injury. ACT 112: Negative or not required by law. The above report was generated using voice recognition software. It may contain grammatical, syntax or spelling errors. Electronically signed by: Davon Carreon M.D. 01/20/2024 4:49 PM Hip X-Ray 01/21/24 00:00 FL hip RT 2-3V CLINICAL HISTORY: ADD ON RIGHT HIP CANNULATED SCREWS TECHNIQUE: 2 views were obtained with the C-arm in the OR with the above procedure. Total fluoroscopy time was 54.1 seconds. Radiation dose was 12.23 mGy. Comparison: Comparison is made to CT abdomen pelvis 01/20/2024 FINDINGS/IMPRESSION: Intraoperative images were obtained of right hip cannulated screw placement. Fracture fragments are in satisfactory alignment. Please correlate with intraoperative fluoroscopy and operative report. ACT 112: Negative or not required by law. Electronically signed by: Axel Sheffield M.D. 01/21/2024 4:01 PM Pending Results Patient Have Any Pending Studies at Discharge: No Discharge Instructions Given to Patient (Per Discharging Provider) 50% Weightbearing right leg for 6 weeks. 81 mg Aspirin twice daily for 6 weeks post-op. Supervising Physician Co-Signing Physician Notes Patient was seen and examined independently I discussed the case with Michell BREWER I reviewed pertinent past medical social family history and also the plan of care and agree with the plan of care. Patient with count fall sustaining right hip fracture and right clavicular fracture. Underwent open reduction internal fixation with screws by Dr. Pena on 01/21/2024 Postoperatively the patient did perform poorly in physical therapy and recommended for rehab. Mild mild postural hypotension and mild acute blood loss anemia noted Awake alert appropriate card exam is regular lungs are clear at time of discharge Patient complained of constipation at time of discharge but did not request any cathartic agents because of her trip to the rehab she wishes to further tackle this issue while she is at rehab It required greater than 30 minutes to prepare this patient for discharge Any exceptions will be noted below Total Time Total Time Spent Total Time Spent (In Minutes): 60 Coding Level of Care Code None Diagnoses Femoral neck fracture S72.009A Encounter type: initial encounter Fracture type: closed Laterality: unspecified laterality Clavicle fracture S42.001A Clavicle location: unspecified part of clavicle Encounter type: initial encounter Fracture alignment: nondisplaced Fracture type: closed Laterality: right Syncope and collapse R55 Hypertension I10
[2024-01-23 11:27] VITALS: BP 119/77; O2SAT 99
[2024-01-23] MEDS: ALPRAZolam 0.5 MG TABLET PO PRN (11:27)
[2024-01-23] MEDS: DOCUSATE SODIUM 100 MG CAP PO ONE (11:29)
[2024-01-23 13:48] VITALS: PULSE 76
--- NOTE | 2024-01-23 17:09 | Billing Data ---
Date of Service January 23, 2024 Coding Level of Care Code 55977 INP/OBS DISCH >30 MIN
== END 2024-01-23 13:48 | DRG 481 ==
LOC: ED 14:38 → SUATTDRO 17:24 → 2N 17:24 → 3N 01-22 22:42